=== PATIENT | female | born 1995 | race Two or more races ===

== ENCOUNTER 2017-12-17 13:37 | Emergency (ER) | payer OTHER ==
[~2017-12-17] VITALS: Ht 162.6 cm; Wt 74.8 kg
[2017-12-17 14:08] VITALS: BP 128/86
[2017-12-17 14:27] LABS: BASOPHILS % (AUTO) 1.5 % (0.0-2.0); HEMATOCRIT 36.6 % (37.0-47.0); HEMOGLOBIN 12.1 G/DL (12.0-16.0); LYMPHOCYTES % (AUTO) 20.7 % (20.0-45.0); MEAN CORPUSCULAR VOLUME 92 FL (80-99); MONOCYTES % (AUTO) 10.5 % (1.0-10.0); NEUTROPHILS % (AUTO) 64.3 % (45.0-75.0); PLATELET COUNT 335 K/UL (150-450); RED BLOOD COUNT 3.97 M/UL (4.20-5.40); RED CELL DISTRIBUTION WIDTH 12.3 % (11.6-14.8); WHITE BLOOD COUNT 8.9 K/UL (4.8-10.8)
--- NOTE | 2017-12-17 14:28 | Emergency Room Report ---
History of Present Illness General Chief Complaint: Altered Mental Status Present Illness HPI 22-year-old female presents to the emergency department brought by ambulance for abnormal behavior. Upon arrival patient was stating that she "took Marybel today. " pt. does not detail how much or what time. Patient denies SI and HI. Patient also denies psychiatric history. Patient denies pain. Patient is not very talkative. she is cooperative other than conversationally. HPI and ROS is therefore limited. Pt. was more talkative upon arrival and once in room pt. is withdrawn. Allergies: Coded Allergies: UNABLE TO ASSESS (Unverified , 12/17/17) Patient History Past Medical History: see triage record, unable to obtain Past Surgical History: unable to obtain Pertinent Family History: unable to obtain Now: No Nursing Documentation-[facility] Past Medical History Deferred: Pt Cognitively Impaired Review of Systems All Other Systems: limited Physical Exam Vital Signs Date Time Temp Pulse Resp B/P (MAP) Pulse Ox O2 Delivery O2 Flow Rate FiO2 12/17/17 13:30 128/86 Sp02 EP Interpretation: reviewed, normal General Appearance: no apparent distress, alert, GCS 15, non-toxic Head: normocephalic, atraumatic Eyes: bilateral eye normal inspection, bilateral eye PERRL ENT: hearing grossly normal, normal voice Neck: full range of motion Respiratory: chest non-tender, lungs clear, normal breath sounds, speaking full sentences Cardiovascular #1: regular rate, rhythm, normal capillary refill Gastrointestinal: normal bowel sounds, non tender, soft Rectal: deferred Genitourinary: normal inspection Musculoskeletal: back normal, gait/station normal, normal range of motion, non- tender Neurologic: alert, oriented x3, responsive, motor strength/tone normal, sensory intact, normal gait, speech normal, grossly normal Psychiatric: judgement/insight normal Skin: normal color, no rash, warm/dry, well hydrated, other - no obvious skin infections, superficial abrasions or lacertions. Medical Decision Making PA Attestation Dr. Monique is my supervising Physician whom patient management has been discussed with. Diagnostic Impression: Primary Impression: Abnormal behavior ER Course 22-year-old female presents to the emergency department brought by ambulance for abnormal behavior. Upon arrival patient was stating that she "took Marybel today. " pt. does not detail how much or what time. Patient denies SI and HI. Patient also denies psychiatric history. Patient denies pain. Patient is not very talkative. she is cooperative other than conversationally. HPI and ROS is therefore limited. Pt. was more talkative upon arrival and once in room pt. is withdrawn. Pt is withdrawn and flat affect. no delusions or flights of ideas. Upon arrival [facility] patient on 5150 hold as they believe the patient was gravely disabled. Ddx considered but are not limited to OD, SI/HI, psychosis, UTI, intoxication Vital signs: are WNL, pt. is afebrile H&PE are most consistent with behavioral/mental health issue ORDERS: -CBC, CMP: unremarkable/ WNL -UA: negative for infection see results attached. -UDS: POSITIVE FOR : AMPHETAMINES and THC. -Serum ETOH, Salicylates and Acetaminophen - no acute intoxication. ED INTERVENTIONS: Patient was placed under observance for duration of her ED visit. On occasion would be conversational. She continues to deny SI or HI. However for the most part she does not want to verbally communicate she only shakes her head yes or no. At this time patient is medically cleared her labs are unremarkable or within normal limits. Patient was noted to be positive for amphetamines and THC. DISPOSITION: medically cleared for psychiatric evaluation. Labs Test 12/17/17 14:00 12/17/17 15:50 White Blood Count 8.9 K/UL (4.8-10.8) Red Blood Count 3.97 M/UL (4.20-5.40) Hemoglobin 12.1 G/DL (12.0-16.0) Hematocrit 36.6 % (37.0-47.0) Mean Corpuscular Volume 92 FL (80-99) Mean Corpuscular Hemoglobin 30.4 PG (27.0-31.0) Mean Corpuscular Hemoglobin Concent 33.0 G/DL (32.0-36.0) Red Cell Distribution Width 12.3 % (11.6-14.8) Platelet Count 335 K/UL (150-450) Mean Platelet Volume 5.4 FL (6.5-10.1) Neutrophils (%) (Auto) 64.3 % (45.0-75.0) Lymphocytes (%) (Auto) 20.7 % (20.0-45.0) Monocytes (%) (Auto) 10.5 % (1.0-10.0) Eosinophils (%) (Auto) 3.0 % (0.0-3.0) Basophils (%) (Auto) 1.5 % (0.0-2.0) Sodium Level 139 MMOL/L (136-145) Potassium Level 3.7 MMOL/L (3.5-5.1) Chloride Level 104 MMOL/L (98-107) Carbon Dioxide Level 28 MMOL/L (21-32) Anion Gap 8 mmol/L (5-15) Blood Urea Nitrogen 14 mg/dL (7-18) Creatinine 0.8 MG/DL (0.55-1.30) Estimat Glomerular Filtration Rate > 60 mL/min (>60) Glucose Level 92 MG/DL (74-106) Calcium Level 9.0 MG/DL (8.5-10.1) Total Bilirubin 0.5 MG/DL (0.2-1.0) Aspartate Amino Transf (AST/SGOT) 28 U/L (15-37) Alanine Aminotransferase (ALT/SGPT) 18 U/L (12-78) Alkaline Phosphatase 48 U/L (46-116) Total Protein 7.8 G/DL (6.4-8.2) Albumin 4.0 G/DL (3.4-5.0) Globulin 3.8 g/dL Albumin/Globulin Ratio 1.1 (1.0-2.7) Salicylates Level 1.4 ug/mL (2.8-20) Acetaminophen Level < 2 MCG/ML (10-30) Serum Alcohol < 3 mg/dL Urine HCG, Qualitative Negative (NEGATIVE) Urine Opiates Screen Negative (NEGATIVE) Urine Barbiturates Screen Negative (NEGATIVE) Phencyclidine (PCP) Screen Negative (NEGATIVE) Urine Amphetamines Screen Positive (NEGATIVE) Urine Benzodiazepines Screen Negative (NEGATIVE) Urine Cocaine Screen Negative (NEGATIVE) Urine Marijuana (THC) Screen Positive (NEGATIVE) Last Vital Signs Date Time Temp Pulse Resp B/P (MAP) Pulse Ox O2 Delivery O2 Flow Rate FiO2 12/17/17 14:08 128/86 Signed Out To: Lizet Irizarry Dec 17, 2017 14:28
[2017-12-17 14:38] LABS: ANION GAP 8 mmol/L (5-15); BLOOD UREA NITROGEN 14 mg/dL (7-18); CARBON DIOXIDE 28 MMOL/L (21-32); CHLORIDE 104 MMOL/L (98-107); CREATININE 0.8 MG/DL (0.55-1.30); POTASSIUM 3.7 MMOL/L (3.5-5.1); SODIUM 139 MMOL/L (136-145)
[2017-12-17 14:44] LABS: ALANINE AMINOTRANSFERASE 18 U/L (12-78); ALBUMIN/GLOBULIN RATIO 1.1 (1.0-2.7); ALKALINE PHOSPHATASE 48 U/L (46-116); ASPARTATE AMINO TRANSFERASE 28 U/L (15-37); BILIRUBIN,TOTAL 0.5 MG/DL (0.2-1.0)
[2017-12-17 15:42] VITALS: BP 110/68
[2017-12-17 18:55] VITALS: BP 112/76
[2017-12-18 00:48] VITALS: BP 101/66
[2017-12-18 04:07] VITALS: BP 113/80
[2017-12-18 06:58] VITALS: BP 91/54
--- NOTE | 2017-12-18 10:29 | Emergency Room Report ---
Physical Exam Vital Signs Date Time Temp Pulse Resp B/P (MAP) Pulse Ox O2 Delivery O2 Flow Rate FiO2 12/17/17 13:30 128/86 12/17/17 15:42 98.3 73 20 99 Room Air 98.3 Medical Decision Making Diagnostic Impression: Primary Impression: Abnormal behavior Additional Impression: Methamphetamine abuse ER Course pt. is alert and oriented able to converse; defiant. not hold-able. i requested Dr. Iniguez assistance and she concurs and is releasing hold feels patient would benefit from long acting anti-psychotic, rec Haldol 50 IM Last Vital Signs Date Time Temp Pulse Resp B/P (MAP) Pulse Ox O2 Delivery O2 Flow Rate FiO2 12/18/17 06:58 97.9 83 18 91/54 96 Room Air 97.9 Disposition: HOME, SELF-CARE Referrals: MANNIE HAMILTON PLN,REFERRI (PCP) Patient Instructions: Substance Use Disorder Cr Herr M.D. Dec 18, 2017 10:28
[2017-12-18] MEDS ORDERED: Haloperidol Decanoate 50mg Inj IM ONE (10:30)
[2017-12-18 11:00] VITALS: BP 110/76
== END 2017-12-18 11:00 | disposition home or self-care (01) ==
LOC: EDBD 13:37 → EMR 18:39
DX: R41.82 Altered mental status, unspecified (principal); F15.10 Other stimulant abuse, uncomplicated
CPT/HCPCS: 36415; 80053; 80307; 80329; 81025; 85025; 96372; 99284; J1631